=== PATIENT | female | born 1980 | race Caucasian/White ===

== ENCOUNTER 2018-06-06 09:07 | Emergency (ER) | payer SELFPAY ==
[2018-06-06] MEDS ORDERED: IBUPROFEN SUSP 100 MG/5 ML ORAL SYRINGE PO ONE (09:34)
[2018-06-06] MEDS ORDERED: KETOROLAC TROMETHAMINE 60 MG/2 ML SDV IM ONE (09:35)
--- NOTE | 2018-06-06 09:43 | ER Document Report ---
ED Medical Screen (RME) - General Chief Complaint: Stiff Neck Stated Complaint: FEVER/FACIAL SWELLING Time Seen by Provider: 06/06/18 09:27 Mode of Arrival: Ambulatory Information source: Patient Notes: 37 years old female from [place], presents with 3 day history of sore throat fever, swelling of the anterior part of the neck, difficulty in swallowing. On and off dry cough. No difficulty in breathing or wheezing. Denies any earache. Denies any nausea vomiting or other constitutional symptoms. History of hypertension but no diabetes TRAVEL OUTSIDE OF THE [place] IN LAST 30 DAYS: No - Related Data Allergies/Adverse Reactions: No Known Allergies Allergy (Verified 06/06/18 09:18) Past Medical History - Social History Chew tobacco use (# tins/day): No Frequency of alcohol use: None Drug Abuse: None - Past Medical History Cardiac Medical History: Reports: Hx Hypertension Renal/ Medical History: Denies: Hx Peritoneal Dialysis Past Surgical History: Reports: Hx Section - x 3, Hx Cholecystectomy Physical Exam - Vital signs Vitals: Temp Pulse Resp BP Pulse Ox 99.0 F 124 H 16 120/87 H 96 06/06/18 09:12 06/06/18 09:12 06/06/18 09:12 06/06/18 09:12 06/06/18 09:12 Course - Vital Signs Vital signs: Temp Pulse Resp BP Pulse Ox 99.0 F 124 H 16 120/87 H 96 06/06/18 09:12 06/06/18 09:12 06/06/18 09:12 06/06/18 09:12 06/06/18 09:12
[2018-06-06] MEDS ORDERED: NORMAL SALINE 1000 ML 1,000 ML IV PRN (09:46)
[2018-06-06] MEDS ORDERED: DEXAMETHASONE SOD PHOS INJ 10 MG/1 ML VIAL IV ONE (10:19)
--- NOTE | 2018-06-06 10:23 | ER Document Report ---
ED General - General Chief Complaint: Stiff Neck Stated Complaint: FEVER/FACIAL SWELLING Time Seen by Provider: 06/06/18 09:27 Mode of Arrival: Ambulatory TRAVEL OUTSIDE OF THE [place] IN LAST 30 DAYS: No - HPI Notes: Patient is a 37-year-old female no significant past medical history who presents to the ED complaining of sore throat, swollen tonsils, pain with swallowing, pain in the inferior jaw/anterior neck, body aches, feverish 3 days. Patient states that she does have an occasional headache without any neck stiffness or posterior neck/back pain. Patient states that she does have a history of strep, but no peritonsillar/pharyngeal abscess history. Patient states that she is still able to eat and drink, but does have a decreased p.o. intake due to the pain. She has not had any drooling or hoarseness. She is urinating normally and having normal bowel movements. Denies any drug allergies , IV drug use. Denies any current headache, neck pain, URI, chest pain, palpitations, syncope, cough, shortness of breath, wheeze, dyspnea, abdominal pain, nausea/vomiting/diarrhea, urinary retention, dysuria, hematuria, or rash. - Related Data Allergies/Adverse Reactions: No Known Allergies Allergy (Verified 06/06/18 09:18) Past Medical History - General Information source: Patient - Social History Smoking Status: Never Smoker Chew tobacco use (# tins/day): No Frequency of alcohol use: None Drug Abuse: None Family History: Reviewed & Not Pertinent Patient has suicidal ideation: No Patient has homicidal ideation: No - Past Medical History Cardiac Medical History: Reports: Hx Hypertension Renal/ Medical History: Denies: Hx Peritoneal Dialysis Past Surgical History: Reports: Hx Section - x 3, Hx Cholecystectomy Review of Systems - Review of Systems -: Yes All other systems reviewed and negative Physical Exam - Vital signs Vitals: Temp Pulse Resp BP Pulse Ox 99.0 F 124 H 16 120/87 H 96 06/06/18 09:12 06/06/18 09:12 06/06/18 09:12 06/06/18 09:12 06/06/18 09:12 Notes: HR 90 during exam, not tachycardic. - Notes Notes: PHYSICAL EXAMINATION: GENERAL: Well-appearing, well-nourished and in no acute distress. A&Ox4. Answers questions appropriately. Moves comfortably w/o notable distress HEAD: Atraumatic, normocephalic. EYES: Pupils equal round and reactive to light, extraocular movements intact, sclera anicteric, conjunctiva are normal. ENT: EAC clear b/l. TM's intact b/l without erythema, fluid, or perforation. Nares patent and without discharge. oropharynx erythematous without exudates. 3+ tonsilar hypertrophy with erythema no obvious exudate. No palatine shift. Uvula midline. No tongue protrusion. No drooling, hoarseness, or airway compromise. Moist mucous membranes. No sinus tenderness. NECK: Normal range of motion, supple with + mild tenderness ant. cerv chain/ submandibular lymphadenopathy. No rigidity/meningismus. kernig/brudzinski neg. LUNGS: Breath sounds clear to auscultation bilaterally and equal. No wheezes rales or rhonchi. No retractions HEART: Regular rate and rhythm without murmurs, rubs, gallops. ABDOMEN: Soft, nontender, nondistended abdomen. No guarding, no rebound. Normal bowel sounds present. No CVA tenderness bilaterally. No hepatosplenomegaly. NEUROLOGICAL: Normal speech, normal gait. PSYCH: Normal mood, normal affect. SKIN: Warm, Dry, normal turgor, no rashes or lesions noted. Course - Re-evaluation Re-evalutation: 06/06/18 11:24 Patient is an afebrile, well-hydrated, 37-year-old female who presents to the ED with acute strep pharyngitis. Vitals are acceptable without any significant tachycardia, tachypnea, or hypoxia. PE is otherwise unremarkable. Rapid strep was positive. CBC did show an elevated white count. CMP unremarkable for acute pathology. CT scan of the soft tissue neck which was ordered at [facility] prior to my eval was negative for acute pathology otherwise. Patient is nontoxic-appearing and is tolerating p.o. without difficulties. Decadron and Toradol given today. No other labs or imaging warranted at this time based on H &P. Low suspicion for any meningitis, sepsis, peritonsillar/pharyngeal abscess , respiratory compromise, Smith's, or other emergent systemic condition at this time. Patient is aware this condition can change from initial presentation and she needs to monitor symptoms closely. I will send her home with a prescription for penicillin. Conservative measures otherwise for symptoms. Recheck with your PCM in 2-3 days. Return to the ED with any worsening/concerning symptoms otherwise as reviewed in discharge. Patient is in agreement. - Vital Signs Vital signs: Temp Pulse Resp BP Pulse Ox 99.0 F 124 H 16 120/87 H 96 06/06/18 09:12 06/06/18 09:12 06/06/18 09:12 06/06/18 09:12 06/06/18 09:12 - Laboratory Result Diagrams: 06/06/18 10:06 06/06/18 10:35 Laboratory results interpreted by me: 06/06/18 06/06/18 10:06 10:35 WBC 14.7 H Absolute Neutrophils 11.1 H Glucose 152 H ALT 59 H Discharge - Discharge Clinical Impression: Acute streptococcal pharyngitis Condition: Stable Disposition: HOME, SELF-CARE Instructions: Strep Throat ([facility]) Additional Instructions: Maintain adequate fluid intake Take meds as directed Salt water gargles, throat sprays, mouthwash rinse, peroxide gargles tylenol/ibuprofen as needed New toothbrush tomorrow evening over the counter cold medication as needed for symptoms F/u: with your PCM in 2-3 days for a recheck Consider consult with ENT for ongoing/worsening symptoms Return to the ED with any fever, worsening pain, chest pain, neck pain/stiffness , shortness of breath, cough, drooling, trouble swallowing/breathing, abdominal pain, n/v/d, rash, or worsening/concerning symptoms otherwise. Prescriptions: Penicillin V Potassium [Penicillin Vk 250 mg Tablet] 500 mg PO BID #40 tablet Forms: Elevated Blood Pressure Referrals: ARON COLON DO [ASSOCIATE] - Follow up as needed
[2018-06-06 10:25] LABS: ABSOLUTE BASOPHILS # (AUTO) 0.1 10^3/uL (0.0-0.2); ABSOLUTE EOSINOPHILS # (AUTO) 0.3 10^3/uL (0.0-0.6); ABSOLUTE LYMPHOCYTES (AUTO) 2.1 10^3/uL (0.5-4.7); ABSOLUTE MONOCYTES (AUTO) 1.1 10^3/uL (0.1-1.4); ABSOLUTE NEUT (AUTO) 11.1 10^3/uL (1.7-8.2); BASOPHILS % (AUTO) 0.5 % (0-2); EOSINOPHILS % (AUTO) 2.1 % (0-6); HEMOGLOBIN 15.2 g/dL (12.0-15.5); LYMPHOCYTES % (AUTO) 14.5 % (13-45); MEAN CORPUSCULAR HGB CONC 34.6 g/dL (32.0-36.0); MEAN CORPUSCULAR VOLUME 87 fl (80-97); MONOCYTES % (AUTO) 7.3 % (3-13); PLATELET COUNT 317 10^3/uL (150-450); RED BLOOD COUNT 5.08 10^6/uL (3.72-5.28); RED CELL DISTRIBUTION WIDTH 13.2 % (11.5-14.0); SEGMENTED NEUTROPHILS % (AUTO) 75.6 % (42-78); TOTAL CELLS COUNTED % (AUTO) 100 %; WHITE BLOOD COUNT 14.7 10^3/uL (4.0-10.5)
--- NOTE | 2018-06-06 10:44 | RADIOLOGY REPORT (SQ) ---
EXAM DESCRIPTION: CT SOFT TISSUE NECK WITH COMPLETED DATE/TIME: 06/06/2018 10:35 am REASON FOR STUDY: Tonsillar abscess COMPARISON: None. TECHNIQUE: Post IV contrasted scanning from skull base through lung apices with review of bone, soft tissue and lung windows. Reconstructed coronal and sagittal MPR images reviewed. All images stored on PACS. All CT scanners at this facility use dose modulation, iterative reconstruction, and/or weight based d osing when appropriate to reduce radiation dose to as low as reasonably achievable (ALARA). [facility]: Dose Right [facility]: CareDose [facility]: Dose Right [facility]: Teradose 4D [facility]: QPD CONTRAST TYPE AND DOSE: contrast/concentration: Isovue 370.00 mg/ml; Total Contrast Delivered: 75.0 ml; Total Saline Delivered: 53.6 ml RENAL FUNCTION: None required. The patient is less than 50 years old. RADIATION DOSE: CT Rad equipment meets quality standard of care and radiation dose reduction techniq ues were employed. CTDIvol: 16.7 mGy. DLP: 550 mGy-cm. . LIMITATIONS: None. FINDINGS: SKULL BASE: Intact. MAJOR SALIVARY GLANDS: No solid or cystic masses. No inflammatory changes. LYMPHADENOPATHY: Multiple enlarged nodes in the cervical chains bilateral left greater than right. P resumed reactive. MUCOSAL MASSES OR ASYMMETRY: No mucosal masses or asymmetry. LARYNX/CORDS: No abnormal findings. VASCULAR STRUCTURES: The major vessels are patent. LUNG APICES: Clear. BONES: Intact. THYROID: Normal size. No masses. PARANASAL SINUSES: Clear. OTHER: No other significant finding. IMPRESSION: No abscess. Generalize reactive adenopathy. TECHNICAL DOCUMENTATION: JOB ID: [id number] Quality ID # [id number]: Final reports with documentation of one or more dose reduction techniques (e.g., Au tomated exposure control, adjustment of the mA and/or kV according to patient size, use of iterative reconstruction technique) 2010 [employer]- All Rights Reserved Reading location - IP/workstation name: [email or web address]
[2018-06-06 11:08] LABS: ALANINE AMINOTRANSFERASE 59 U/L (9-52); ALBUMIN 3.8 g/dL (3.5-5.0); ALKALINE PHOSPHATASE 59 U/L (38-126); ANION GAP 13 (5-19); ASPARTATE AMINO TRANSFERASE 21 U/L (14-36); BILIRUBIN,DIRECT 0.2 mg/dL (0.0-0.4); BILIRUBIN,TOTAL 1.3 mg/dL (0.2-1.3); BLOOD UREA NITROGEN 11 mg/dL (7-20); CALCIUM 8.5 mg/dL (8.4-10.2); CARBON DIOXIDE 23 mmol/L (22-30); CHLORIDE 104 mmol/L (98-107); GLUCOSE 152 mg/dL (75-110); POTASSIUM 4.5 mmol/L (3.6-5.0); SODIUM 139.7 mmol/L (137-145); TOTAL PROTEIN 6.6 g/dL (6.3-8.2)
[2018-06-06 12:02] VITALS: BP 109/51
== END 2018-06-06 11:47 | disposition home or self-care (01) ==
LOC: ER 09:07
DX: J02.0 Streptococcal pharyngitis (principal); R68.84 Jaw pain; M54.2 Cervicalgia; R51 Headache; I10 Essential (primary) hypertension
CPT/HCPCS: 99284; 96372; 96361; 96374; 36415; 87880; 85025; 80053; 70491; J1885; J7030; J1100